=== PATIENT | female | born 1940 | race Caucasian/White ===

== ENCOUNTER → 2016-12-28 | Outpatient (CLI) | payer MEDICARE ==
--- NOTE | 2016-12-28 10:51 | RADRPT ---
EXAM DATE/TIME: 12/28/2016 00:00 [facility] COMPARISON: No previous studies available for comparison. INDICATIONS : Dysphagia for 2 months; all consistencies are hard, liquids are worse. FLUORO TIME: 2.2 minutes IMAGE COUNT: 0 CONTRAST: Dose as prescribed by speech pathologist. MEDICAL HISTORY : None. SURGICAL HISTORY : Cholecystectomy. Colectomy. ENCOUNTER: Initial ACUITY: 2 months PAIN SCORE: 0/10 LOCATION: Esophagus. FINDINGS: A modified barium swallow was performed with speech pathology. Patient was given a variety of liquids to swallow. The patient showed silent aspiration with the nectar consistency. Deep penetration was seen within li quids. Orally pooling in the vallecula was noted with the applesauce. For a full detailed report, see report by the speech pathologist. CONCLUSION: Silent aspiration with nectar consistency. Oj Gr Jr., MD on December 28, 2016 at 10:35 Board Certified Radiologist. This report was verified electronically.
== END ==
LOC: HRAD 09:44
PROVIDERS: ATTEND Internal Medicine Gastroenterology
DX: R13.10 Dysphagia, unspecified (principal)
CPT/HCPCS: 74230; 92611; G8996; G8997; G8998

== ENCOUNTER 2017-03-14 08:16 | Day surgery (SDC) | payer MEDICARE ==
[2017-03-14] VITALS (7 sets, daily range): BP systolic 120–143; BP diastolic 64–77; PULSE 70–86; RESP 18–20; TEMP 97–97.9; O2SAT 92–95
[~2017-03-14] VITALS: Ht 160 cm; Wt 50.9 kg
[~2017-03-14 08:16] MED LIST: ASPI81CH PO; CARA1TAB6 PO; D5NS IV; DEXA4TAB PO; FISH1200 PO; FLUT1INH INH; MAGICADU2 SWISH-SWAL; METF500T PO; METO50TA PO; OMEP40CA2 PO; ONCETAB7 PO; ROSU10 PO; SERT1POW3 PO; SPIR50TA PO; SYNT112T PO; UMEC1INH INH
[2017-03-14 08:59] LABS: AUTOMATED NEUTROPHIL # 10.3 TH/MM3 (1.8-7.7); BASOPHIL % 0.4 % (0.0-2.0); HEMATOCRIT 43.1 % (35.0-46.0); HEMO FLAGS DIFF FINAL; LYMPH % 4.2 % (9.0-44.0); LYMPHOCYTE # 0.5 TH/MM3 (1.0-4.8); MEAN CORPUSCULAR HEMOGLOBIN 28.8 PG (27.0-34.0); MEAN CORPUSCULAR HGB CONC 33.1 % (32.0-36.0); MONO % 5.3 % (0.0-8.0); NEUT % 90.1 % (16.0-70.0); PLATELET COUNT 162 TH/MM3 (150-450); RED BLOOD COUNT 4.96 MIL/MM3 (4.00-5.30); RED CELL DISTRIBUTION WIDTH 13.2 % (11.6-17.2); WHITE BLOOD COUNT 11.4 TH/MM3 (4.0-11.0)
[2017-03-14] MEDS ORDERED: SODIUM CHLORIDE 0.9% 1000 ML IV SCH (09:00)
[2017-03-14] MEDS ORDERED: ceFAZolin 2 GM PREMIX 50 ML - gastrostomy and jejunostomy initial insertion IV SCH (09:00)
[2017-03-14] MEDS ORDERED: PLAV75TA29 PO (09:04)
[2017-03-14 09:09] LABS: APTT (PATIENT) 23.8 SEC (24.3-30.1); PROTHROMBIN TIME - PATIENT 11.3 SEC (9.8-11.6)
[2017-03-14] MEDS ORDERED: MIDAZOLAM HCL 5 MG/5 ML VIAL ONE (09:39)
[2017-03-14] MEDS ORDERED: fentaNYL CITRATE 250 MCG/5 ML AMP ONE (09:39)
[2017-03-14] MEDS ORDERED: GLUCAGON 1 MG/ML VIAL ONE (09:42)
[2017-03-14] MEDS ORDERED: IOHEXOL 350 MG/ML 50 ML BTL (for RAD DIAG) G-TUBE ONE (11:11)
--- NOTE | 2017-03-14 11:11 | PD.RAD ---
Post Procedure Progress Note Pre Procedure Diagnosis: (1) Adenocarcinoma of stomach Post Procedure Diagnosis: (1) Adenocarcinoma of stomach Procedure Date: Mar 14, 2017 Supervising Radiologist: Oj Gr JR Proceduralist/Assist: Jazlyn Olvera, RT(R)(CV), Traci Guardado RT(R)() Anesthesia: Conscious Sedation Plan of Activity Patient to Unit: ROPU Patient Condition: Good See PACS Report for procedural detail/treatment Feeding Tube Gastrostomy Placement Irish: 18 Findings: Placed G tube. In good position. Plan T fasteners will fall off on their own in approx 3 weeks Jr. Simón,Oj Galloway MD Mar 14, 2017 11:11
--- NOTE | 2017-03-15 10:00 | RADRPT ---
EXAM DATE/TIME: 03/14/2017 10:13 [facility] COMPARISON: No previous studies available for comparison. INDICATIONS : Patient is in need of placement of a gastrostomy tube due to dysphagia. MEDICAL HISTORY : History of GE junction adenocarcinoma, Collins's esophagus, lung cancer, cataracts, COPD, CAD, HTN, D M, TIA, emphysema, hypercholesteremia, hypothyroidism. SURGICAL HISTORY : History of gastric biopsy, cholecystectomy, colonoscopy, CABG, cardiac catheterization. ENCOUNTER: Initial ACUITY: 1 month PAIN SCORE: 0/10 FLUORO TIME: 2.0 minutes IMAGE SERIES: 1 SEDATION TIME: 30 minutes CONTRAST: 5 cc Omnipaque (iohexol) 350 MEDICATION(S): 1.) 3 mg midazolam (Versed) IV 2.) 150 mcg Fentanyl (Sublimaze) IV DEVICE(S): 1.) 18 Fr gastrostomy tube PROCEDURE : 1. Limited abdominal ultrasound. 2. Fluoroscopically guided gastrostomy tube placement. 3. Conscious sedation with continuous EKG and oximetry monitoring. The risks, benefits and alternatives to the procedure were explained and verbal and written consent w as obtained. The site was prepped in sterile fashion. Full sterile technique was used, including ca p, mask, sterile gloves and gown and a large sterile sheet. Hand hygiene and 2% chlorhexidine and/or betadine/alcohol prep was utilized per protocol for cutaneous antisepsis. The skin and subcutaneous tissues were infiltrated with local anesthetic solution. Ultrasound was used to janelle the position of the liver. The stomach was insufflated with room air. Th ree percutaneous fasteners were placed to secure the anterior gastric wall. A small incision was made between the fasteners. The stomach was accessed with an 18 gauge needle. A n 0.035 wire was advanced into the small bowel. The tract was dilated. The gastrostomy tube was int roduced through a peel-away sheath. The position was confirmed with an injection of contrast. Conscious sedation was performed with the prescribed dosages and duration as above in the presence of an independent trained radiology nurse to assist in the monitoring of the patient. EKG and oximetry remained stable throughout the procedure. The patient tolerated the procedure well and there were n o complications. The patient was sent to post anesthesia recovery in stable condition. CONCLUSION: Uncomplicated gastrostomy tube placement as above. Oj Gr Jr., MD on March 15, 2017 at 9:58 Board Certified Radiologist. This report was verified electronically.
== END 2017-03-14 13:45 | disposition home or self-care (01) ==
LOC: HROP 08:16 → HRIP 08:18 → HROP 13:45
PROVIDERS: ATTEND Specialist
DX: Z43.1 Encounter for attention to gastrostomy (principal); C16.9 Malignant neoplasm of stomach, unspecified; R13.10 Dysphagia, unspecified; Z86.73 Personal history of transient ischemic attack (TIA), and cerebral infarction without residual deficits; Z85.118 Personal history of other malignant neoplasm of bronchus and lung; K22.70 Barrett's esophagus without dysplasia; J44.9 Chronic obstructive pulmonary disease, unspecified; I25.10 Atherosclerotic heart disease of native coronary artery without angina pectoris; I10 Essential (primary) hypertension; E78.00 Pure hypercholesterolemia, unspecified; E11.9 Type 2 diabetes mellitus without complications; E03.9 Hypothyroidism, unspecified; Z79.01 Long term (current) use of anticoagulants; Z79.84 Long term (current) use of oral hypoglycemic drugs
CPT/HCPCS: 49440; 85025; 85610; 85730; 99152; 99153; C1769; C1887; J0690; J2250; J3010; J7030; Q9967; J1610